=== PATIENT | male | born 1935 | race Caucasian/White ===

== ENCOUNTER → 2019-10-11 | Outpatient (CLI) | payer MEDICARE, BC ==
[2019-10-11 12:59] LABS: Appearance,Urine Clear (Clear); Bilirubin,Urine Negative (Negative); Blood,Urine Negative (Negative); Color,Urine Yellow; Glucose,Urine (UA) Negative (Negative); Ketones,Urine Negative (Negative); Leukocyte Esterase,Urine Negative (Negative); Nitrite,Urine Negative (Negative); Protein,Urine Negative (Negative); Specific Gravity,Urine 1.021 (1.001-1.035); Urobilinogen,Urine <2.0 mg/dL (<2.0)
[2019-10-11 13:10] LABS: HCT 32.4 % (39.0-53.0); HGB 10.5 gm/dL (13.0-17.5); MCH 31.7 pg (25.0-35.0); MCHC 32.4 g/dL (31.0-37.0); MCV 97.8 fL (80.0-100.0); Mean Platelet Volume 6.7; Platelet Count 280 k/uL (150-450); RBC 3.32 m/uL (4.30-5.90); RDW 14.8 % (11.5-15.5); WBC 4.8 k/uL (3.8-10.6)
[2019-10-11 13:29] LABS: INR 0.9 (<1.2); Partial Thromboplastin Time 23.7 sec (22.0-30.0); Prothrombin Time 9.6 sec (9.0-12.0)
[2019-10-11 13:38] LABS: Calcium 9.1 mg/dL (8.4-10.2); Potassium 4.7 mmol/L (3.5-5.1); Total Bilirubin 0.3 mg/dL (0.2-1.3); Total Protein 6.4 g/dL (6.3-8.2)
== END | disposition home or self-care (01) ==
LOC: LABPAT 11:44
PROVIDERS: ATTEND Orthopaedic Surgery
DX: Z01.818 Encounter for other preprocedural examination (principal); Z01.812 Encounter for preprocedural laboratory examination
CPT/HCPCS: 36415; 80053; 81003; 85027; 85610; 85730; 86850; 86900; 86901; 87070

== ENCOUNTER 2019-10-19 09:29 | Day surgery (SDC) | payer MEDICARE, BC ==
[2019-10-15 09:59] VITALS: BMI 26.7
[~2019-10-19 09:29] MED LIST: ACETAMINOPHEN TAB 500 MG TAB PO ONE; DEXAMETHASONE SOD PHOSPHATE 10 MG/ML 1 ML VIAL IV ONE; GABAPENTIN 300 MG CAP PO ONE; HYDROmorphone 0.5 MG/0.5 ML SYRINGE IVP PRN; MELOXICAM 7.5 MG TAB PO ONE; MIDAZOLAM 2 MG/2 ML VIAL IV PRN; ONDANSETRON 4 MG/2 ML VIAL IVP ONE; ROPIVACAINE 246.25 MG, EPINEPHrine 0.5 MG, KETOROLAC 30 MG, cloNIDine HCL/PF 80 MCG, WA... MISCELLANE ONE; TRANEXAMIC ACID 1,000 MG in SODIUM CHLORIDE 0.9% 100 ML IVPB ONE
[2019-10-19] MEDS ORDERED: ONDANSETRON 4 MG/2 ML VIAL ONE (10:22)
[2019-10-19] MEDS ORDERED: ACETAMINOPHEN TAB 500 MG TAB ONE (10:22)
[2019-10-19] MEDS: LACTATED RINGERS 1,000 ML IV SCH (10:37)
[2019-10-19] MEDS ORDERED: LIDOCAINE 1% (10MG/ML) FOR IV START INTRADERMA ONE (10:38)
[2019-10-19] MEDS ORDERED: TRANEXAMIC ACID 1,000 MG/10 ML VIAL ONE (11:15)
[2019-10-19] MEDS ORDERED: MIDAZOLAM 2 MG/2 ML VIAL ONE (11:15)
[2019-10-19] MEDS ORDERED: fentaNYL (PF) 50 MCG/ML 2 ML AMP ONE (11:15)
[2019-10-19] MEDS ORDERED: SODIUM CHLORIDE 0.9% 100 ML BAG ONE (11:15)
[2019-10-19] MEDS: TRANEXAMIC ACID 1,000 MG in SODIUM CHLORIDE 0.9% 100 ML IVPB ONE ×2 (11:20→15:46)
--- NOTE | 2019-10-19 12:54 | P.OP ---
Date of Procedure: 10/19/19 Preoperative Diagnosis: Severe osteoarthritis left hip Postoperative Diagnosis: Severe osteoarthritis left hip Procedure(s) Performed: Left total hip arthroplasty with a direct anterior approach Implants: [employer]cdonnell [employer] nephew Polarstem size 5 standard [employer]nell [employer]hew R3, 3 hole acetabular shell, 52 mm [employer]hew reflection 6.5 mm cancellus screw, 20 mm 2 [employer] R3, XLPE 20 acetabular liner [employer]hew Oxinium femoral head 36 m, +4 All components were press-fit. The articulation is Oxinium on polyethylene. Anesthesia: spinal Surgeon: Norm Domínguez Digital Art Director #1: Izabela Brasher Estimated Blood Loss (ml): 100 Pathology: other (Femoral head) Condition: stable Disposition: PACU Indications for Procedure: After failure of conservative treatment we discussed the surgical and nonsurgical treatment options at length. Patient wishes to proceed with a total hip arthroplasty with a direct anterior approach. Complications specific to this procedure were discussed at length, including but not limited to infection, leg length discrepancy, dislocation, and nerve injury. Covid-19 was also discussed at length with the patient, and they are aware of the current policies and procedures. The patient was given the option of delaying surgery, but they elect to proceed knowing these risks. Patient is aware of all these complications and informed consent was obtained Operative Findings: The operative findings are consistent with severe osteoarthritis of the left hip Description of Procedure: Patient was seen and evaluated in the preoperative area, consent was reviewed, and the surgical site was marked with a skin marker. Patient was then brought to the operating room and given prophylactic antibiotics intravenously. 1 g of Tranexamic acid was also given. A spinal anesthetic was administered by the anesthesia department. The patient was then placed on the Hickman table with the bony prominences well-padded. The hip area was then prepped and draped in usual sterile fashion. A universal timeout was then performed, which confirmed the patient's name, surgical site, ALLERGIES, and procedure being performed. Next the incision site was located at 1 cm distal and 1 cm lateral to the anterior superior iliac spine. The skin and subcutaneous tissues were sharply incised. Incision was carefully dissected down to the fascia overlying the tensor fascia minerva muscle. This fascia was then incised in line with the incision. Next, using blunt finger dissection, the tensor fascia minerva muscle was dissected off its investing fascia. The muscle was then carefully retracted laterally with a cobra retractor over the lateral neck of the femur. Next, the circumflex vessels were identified and cauterized using the AquaMantis device. The anterior hip capsule was then exposed. The capsule was then opened and an inverted T fashion. Cobra retractors were then placed intracapsularly. The proximal femur was then visualized. The femoral neck was then osteotomized appropriate level above the lesser trochanter. Small amount of traction was placed with the Hickman table. A small wedge of bone was then removed from the remaining femoral head. Next, using a corkscrew femoral head was easily removed from the acetabulum. On gross visual inspection, the femoral head had complete loss of articular cartilage in multiple periarticular osteophytes. Attention was then turned to the acetabulum. the acetabulum was exposed and any remaining labrum was excised. Sequential reaming of the acetabulum was performed using fluoroscopic guidance. When the appropriate size was reached, a trial was then placed. The position and fit of the trial was checked with fluoroscopy. The trial was then removed. Then, using fluoroscopic guidance, the final implant was impacted at 20 of anteversion and 40 of abduction, and fully seated in the acetabulum. 2 screws were then placed in the acetabulum. Again fluoroscopy was used to check pos ition of the screws. Next, the liner was then impacted, with a 20 elevated liner located in the anterior superior quadrant. Component locking was confirmed. Attention was then directed to the femur. With the aid of the Hickman table, the femur was externally rotated to approximately 130, extended, and abducted under the opposite leg. A side hook was then placed under the proximal femur, and the side hook elevator was used to elevate the proximal femur. Retractors were then placed. A capsular release was performed, as well as a release of the conjoined tendon, which afforded excellent visualization of the proximal femur. Next, a box osteotome was used to lateralize the proximal femur. A hand i cutter was then used to locate the femoral canal. Sequential broaching was then performed with appropriate size which afforded excellent fixation in the proximal femur. A trial was then placed with appropriate head and neck, and the hip was gently reduced with the aid of the Hickman table. Fluoroscopy was then used to check position of the components, as well as to ensure equal leg lengths. The hip was then gently dislocated and the trials were then removed. Final implants were then impacted and the hip was again reduced. Final fluoroscopic x-rays confirmed that the components were in anatomic position, as well as equal leg lengths. The hip was also taken through range of motion, and found to be stable. The hip was then copiously irrigated with antibiotic solution with pulsatile lavage. The hip was then irrigated with Irrisept solution. The soft tissues were then injected with a ropivacaine solution, which consisted of 246.25 mg of ropivacaine, 0.5 mg of epinephrine, 30 mg of Toradol, 80 g of clonidine, and 48.45 mL of sterile water, for a total of 100 mL of fluid injected. A second dose of 1 g of Tranexamic acid was also given. the fascia was then closed with 2-0 strata fix suture. The subcutaneous tissue was closed with 3-0 Vicryl. The subcuticular tissue was closed with 3-0 strata fix suture. The skin was then closed with Dermabond glue and a sterile silver dressing. The patient was then transferred to the recovery room in stable condition. The assistant women's soccer coach AL Benson was required due to the complexity of surgery, and the need for skilled salon shampoo assistant for positioning, draping, exposure, retraction, and closure of the wound.
[2019-10-19] MEDS ORDERED: LACTATED RINGERS 1,000 ML IV ONE (12:55)
[2019-10-19] MEDS ORDERED: NALOXONE 0.4 MG/ML 1 ML VIAL IV PRN (12:59)
[2019-10-19] MEDS ORDERED: MAGNESIUM HYDROXIDE 2,400 MG/10 ML CUP PO PRN (12:59)
[2019-10-19] MEDS ORDERED: HYDROcodone/APAP 5-325MG 1 EACH TAB PO PRN ×2 (12:59)
[2019-10-19] MEDS ORDERED: HYDROmorphone 0.5 MG/0.5 ML SYRINGE IVP PRN ×3 (12:59)
[2019-10-19] MEDS ORDERED: ONDANSETRON 4 MG/2 ML VIAL IVP PRN (12:59)
--- NOTE | 2019-10-19 14:12 | XR ---
EXAMINATION TYPE: XR Hip Limited LT DATE OF EXAM: 10/19/2019 COMPARISON: None HISTORY: Post hip surgery TECHNIQUE: Left hip AP view FINDINGS: There is a femoral prosthesis with acetabular component. No acute fractures are evident. Po stsurgical soft tissue changes are present. IMPRESSION: 1. No acute fracture post hip replacement
--- NOTE | 2019-10-19 15:13 | XR ---
Limited left hip HISTORY: Anterior hip replacement 2 intraoperative C-arm images document the procedure
--- NOTE | 2019-10-19 15:13 | FL ---
Fluoroscopy HISTORY: Anterior hip replacement 24 seconds fluoroscopy time supplied to the referring clinician. 2 intraoperative C-arm images docum ent the procedure. See dictated report from orthopedic surgery.
[2019-10-19] MEDS ORDERED: SENNOSIDES-DOCUSATE SODIUM 1 EACH TAB PO SCH (21:00)
[2019-10-19] MEDS: ASPIRIN 325 MG TAB PO SCH (21:48)
--- NOTE | 2019-10-19 22:18 | P.CONS ---
History of Present Illness - History of Present Illness this is a pleasant 84 yo M with past medical history of hypertension and oste oarthritis, who presents for elective left hip arthroplasty by orthopedic team for his sever osteoarthritis team. today is post op day #0, pt is lying in bed not in distress, pain is controlled and family at bed side pt denies chest pain , no dyspnea , no dysuria or urinary complaint, he did not have bowel movement yet vitals are stable Review of Systems CONSTITUTIONAL: No fever, no malaise, no fatigue. HEENT: No recent visual problems or hearing problems. Denied any sore throat. CARDIOVASCULAR: No orthopnea, PND, no palpitations, no syncope. PULMONARY: No shortness of breath, no cough, no hemoptysis. GASTROINTESTINAL: No diarrhea, no nausea, no vomiting, no abdominal pain. Normoactive bowel sounds. NEUROLOGICAL: No headaches, no weakness, no numbness. HEMATOLOGICAL: Denies any bleeding or petechiae. GENITOURINARY: Denies any burning micturition, frequency, or urgency. MUSCULOSKELETAL/RHEUMATOLOGICAL: Denies any joint pain, swelling, or any muscle pain. ENDOCRINE: Denies any polyuria or polydipsia. Past Medical History Past Medical History: Cancer, Hypertension, Osteoarthritis (OA) Additional Past Medical History / Comment(s): skin CA History of Any Multi-Drug Resistant Organisms: None Reported Past Surgical History: Joint Replacement Additional Past Surgical History / Comment(s): rt hip replaced, skin CA removed Past Anesthesia/Blood Transfusion Reactions: Postoperative Nausea & Vomiting (PONV) Additional Past Anesthesia/Blood Transfusion Reaction / Comm: no hx blood transfusion Past Psychological History: No Psychological Hx Reported Smoking Status: Former smoker Past Alcohol Use History: Occasional Additional Past Alcohol Use History / Comment(s): quit smoking 1965 Past Drug Use History: None Reported - Past Family History Mother Family Medical History: No Reported History Medications and Allergies Home Medications Medication Instructions Recorded Confirmed Type Lisinopril 20 mg PO QAM 10/14/19 10/14/19 History Ascorbic Acid [Vitamin C] 500 mg PO DAILY 10/18/19 10/18/19 History Beet Powder Supplement 1 dose PO DAILY 10/18/19 History Carrot Powder Supplement 1 dose PO DAILY 10/18/19 History [place] Supplement 1 dose PO DAILY 10/18/19 History Turmeric Root Extract [Turmeric] 500 mg PO DAILY 10/18/19 10/18/19 History Allergies Allergy/AdvReac Type Severity Reaction Status Date / Time No Known Allergies Allergy Verified 10/19/19 09:47 Physical Exam Vitals: Vital Signs Temp Pulse Resp BP Pulse Ox 10/19/19 16:20 62 168/80 96 10/19/19 16:00 66 16 10/19/19 15:50 65 168/85 94 L 10/19/19 15:35 72 168/83 95 10/19/19 15:20 65 155/82 95 10/19/19 15:05 64 164/81 92 L 10/19/19 14:50 64 154/72 96 10/19/19 14:35 67 152/80 95 10/19/19 14:20 97.6 F 68 17 146/77 94 L 10/19/19 13:45 66 16 157/74 96 10/19/19 13:30 62 16 143/69 96 10/19/19 13:15 71 16 132/65 94 L 10/19/19 13:00 97.2 F L 82 18 157/82 96 10/19/19 09:53 97.3 F L 72 16 174/83 98 Intake and Output 10/19/19 10/19/19 10/19/19 06:59 14:59 22:59 Intake Total 1200 Output Total 100 Balance 1100 Intake: IV 1200 Output: Estimated Blood Loss 100 Other: Weight 76.8 kg GENERAL: The patient is alert and oriented x3, not in any acute distress. Well developed, well nourished. HEENT: Pupils are round and equally reacting to light. EOMI. No scleral icterus. No conjunctival pallor. Normocephalic, atraumatic. No pharyngeal erythema. No thyromegaly. CARDIOVASCULAR: S1 and S2 present. No murmurs, rubs, or gallops. PULMONARY: Chest is clear to auscultation, no wheezing or crackles. ABDOMEN: Soft, nontender, nondistended, normoactive bowel sounds. No palpable organomegaly. MUSCULOSKELETAL: No joint swelling or deformity. -EXTREMITIES: No cyanosis, clubbing, or pedal edema. left hip surgical site looks closed and dry , dressing is in place NEUROLOGICAL: Gross neurological examination did not reveal any focal deficits. SKIN: No rashes. Assessment and Plan Assessment: sever primary osteoarthritis of the left hip status post left total hip arthroplasty hypertension Plan: this is a pleasant 84 yo M who presents for Left hip arthroplasty , resume his lisinopril in the morning and monitor his blood pressure pain management and DVT prophylaxis as per primary surgery team Labs and medication were reviewed.. Continue same treatment. Continue with symptomatic treatment. Resume home medication. Monitor lytes and vitals. DVT and GI prophylaxis. Further recommendations of the clinical course of the patient DVT prophylaxis: on aspirin BID per surgery team GI Prophylaxis: Pepcid we recommend pt follows up with his pcp in one week after discharge thank you for consulting up
[2019-10-20] MEDS: FAMOTIDINE 20 MG TAB PO SCH ×2 (03:46→08:08)
[2019-10-20] MEDS: SODIUM CHLORIDE 0.9% 1,000 ML IV SCH ×2 (03:46→08:03)
[2019-10-20 07:34] LABS: Basophils % (A) 0 %; Eosinophils # (A) 0.1 k/uL (0-0.7); Eosinophils % (A) 2 %; HCT 26.3 % (39.0-53.0); Lymphocytes # (A) 0.3 k/uL (1.0-4.8); Lymphocytes % (A) 7 %; MCHC 31.6 g/dL (31.0-37.0); Mean Platelet Volume 7.1; Monocytes # (A) 0.5 k/uL (0-1.0); Monocytes % (A) 9 %; Neutrophils # (A) 4.1 k/uL (1.3-7.7); Neutrophils % (A) 79 %; Platelet Count 226 k/uL (150-450); RBC 2.77 m/uL (4.30-5.90); RDW 15.1 % (11.5-15.5); WBC 5.2 k/uL (3.8-10.6)
[2019-10-20 07:38] LABS: HGB 8.3 gm/dL (13.0-17.5)
[2019-10-20] MEDS: LACTATED RINGERS 1,000 ML IV SCH (08:03)
[2019-10-20] MEDS: ASPIRIN 325 MG TAB PO SCH (08:08)
[2019-10-20] MEDS ORDERED: lisinopriL 20 MG TAB PO SCH (09:00)
--- NOTE | 2019-10-20 09:33 | P.DS ---
Providers Expected date of discharge: 10/20/19 Attending physician: Norm Domínguez Consults: 10/19/19 12:59 Consult Physician Routine Consulting Provider: Tristan Stoner Consult Reason/Comments: medical management Do you want consulting provider notified?: Yes Primary care physician: Doc Lake - Discharge Diagnosis(es) (1) Osteoarthritis of left hip Current Visit: Yes Status: Acute (2) Status post total hip replacement, left Current Visit: Yes Status: Acute Hospital Course: This is an 84-year-old male with known history of degenerative arthritis of the left hip. The patient presents for evaluation. After discussion and consideration patient elects to proceed with total hip arthroplasty. The patient is seen preoperatively by Dr. Domínguez and medically cleared for surgery by their primary care physician. Patient is admitted to [facility] on 10/19/2019 for total hip arthroplasty. The procedures performed without complication or sequelae. The patient is doing well postoperatively. Labs and vital signs are stable on day of discharge. On day of discharge patient's hip incision is healing well. There is minimal erythema. There is no drainage noted at this time. There is minimal soft tissue swelling to the hip and thigh. Patient has full foot and ankle motion without difficulty or pain. Calf is soft and nontender to palpation. Neurovascular status to the left lower extremity is intact. Patient is discharged home in good condition. Opioid start talking form is reviewed and signed at patient bedside. Please see med rec for accurate list of home medications. Plan - Discharge Summary Discharge Rx Participant: Yes New Discharge Prescriptions: New Aspirin 325 mg PO BID #60 tab No Action Lisinopril 20 mg PO QAM Turmeric Root Extract [Turmeric] 500 mg PO DAILY Ascorbic Acid [Vitamin C] 500 mg PO DAILY [place] Greens Supplement 1 dose PO DAILY Carrot Powder Supplement 1 dose PO DAILY Beet Powder Supplement 1 dose PO DAILY Discharge Medication List Lisinopril 20 mg PO QAM 10/14/19 [History] Ascorbic Acid [Vitamin C] 500 mg PO DAILY 10/18/19 [History] Beet Powder Supplement 1 dose PO DAILY 10/18/19 [History] Carrot Powder Supplement 1 dose PO DAILY 10/18/19 [History] [place] Greens Supplement 1 dose PO DAILY 10/18/19 [History] Turmeric Root Extract [Turmeric] 500 mg PO DAILY 10/18/19 [History] Aspirin 325 mg PO BID #60 tab 10/20/19 [Rx] Follow up Appointment(s)/Referral(s): Doc Lake MD [Primary Care Provider] - 1 Week Norm Domínguez DO [Doctor of Osteopathic Medicine] - 2 Weeks Activity/Diet/Wound Care/Special Instructions: Weightbearing as tolerated with walker. Leave dressing intact. Dressing may be removed by home care nurse or by patient in 10 days. May shower with dressing on. Recommend use of compression stockings daily until follow up to help prevent swelling and blood clots. May remove at night before sleeping. Please follow-up with [facility] in 2 weeks and call with any questions or concerns, . Discharge Disposition: HOME WITH HOME HEALTH SERVICES
[2019-10-20] MEDS ORDERED: FERROUS SULFATE 325 MG TAB PO SCH (11:30)
--- NOTE | 2019-10-20 12:17 | P.PN ---
Subjective this is a pleasant 84 yo M with past medical history of hypertension and osteoarthritis, who presents for elective left hip arthroplasty by orthopedic team for his sever osteoarthritis team. today is post op day #0, pt is lying in bed not in distress, pain is controlled and family at bed side pt denies chest pain , no dyspnea , no dysuria or urinary complaint, he did not have bowel movement yet vitals are stable 10/20/2019 Patient is seen at bedside, is fully awake and oriented, he denies chest pain or dyspnea. Abdominal pain. He is tolerating diet well, no nausea vomiting. He is passing gas but had no bowel movement. No fever. Vitals looks stable. Hemoglobin went down from 10.5 down to 8.3, which is expected from blood loss anemia during surgery. Patient is started on iron pills and he informed to follow up with his PCP in one week to recheck his hemoglobin and blood test and he agrees. [facility] Barbara Marcus on 10/27 that he intends to follow-up with [facility] - Vital Signs Vital signs: Vital Signs Temp 97.9 F 10/20/19 07:00 Pulse 78 10/20/19 07:00 Resp 16 10/20/19 07:00 BP 163/84 10/20/19 07:00 Pulse Ox 96 10/20/19 07:00 Intake & Output 10/19/19 10/20/19 10/20/19 18:59 06:59 18:59 Intake Total 1200 Output Total 100 Balance 1100 Weight 76.8 kg Intake: IV 1200 Output: Estimated Blood Loss 100 Other: # Voids 1 - Exam GENERAL: The patient is alert and oriented x3, not in any acute distress. Well developed, well nourished. HEENT: Pupils are round and equally reacting to light. EOMI. No scleral icterus. No conjunctival pallor. Normocephalic, atraumatic. No pharyngeal erythema. No thyromegaly. CARDIOVASCULAR: S1 and S2 present. No murmurs, rubs, or gallops. PULMONARY: Chest is clear to auscultation, no wheezing or crackles. ABDOMEN: Soft, nontender, nondistended, normoactive bowel sounds. No palpable organomegaly. MUSCULOSKELETAL: No joint swelling or deformity. -EXTREMITIES: No cyanosis, clubbing, or pedal edema. left hip surgical site looks closed and dry , dressing is in place NEUROLOGICAL: Gross neurological examination did not reveal any focal deficits. SKIN: No rashes. - Labs CBC & Chem 7: 10/20/19 06:59 Labs: Abnormal Lab Results - Last 24 Hours (Table) 10/20/19 Range/Units 06:59 RBC 2.77 L (4.30-5.90) m/uL Hgb 8.3 L D (13.0-17.5) gm/dL Hct 26.3 L (39.0-53.0) % Lymphocytes # 0.3 L (1.0-4.8) k/uL Assessment and Plan Assessment: sever primary osteoarthritis of the left hip status post left total hip arthroplasty acute blood loss anemia, expected from surgery hypertension Plan: this is a pleasant 84 yo M who presents for Left hip arthroplasty , resume his lisinopril in the morning and monitor his blood pressure pain management and DVT prophylaxis as per primary surgery team saw the patient on iron pills, follow-up with PCP in one week, patient has an appointment on 10/27 with JONATHAN Garner and he agrees to follow up with her Labs and medication were reviewed.. Continue same treatment. Continue with symptomatic treatment. Resume home medication. Monitor lytes and vitals. DVT and GI prophylaxis. Further recommendations of the clinical course of the patient DVT prophylaxis: on aspirin BID per surgery team GI Prophylaxis: Pepcid we recommend pt follows up with his pcp in one week after discharge thank you for consulting up
[2019-10-20 14:00] VITALS: BP 167/79; PULSE 80; RESP 20; TEMP 97.2
== END 2019-10-20 15:57 | disposition home health service (06) ==
LOC: OR 09:29 → 4SSUR 13:59 → OR 10-20 15:57
PROVIDERS: ATTEND Orthopaedic Surgery
DX: M16.12 Unilateral primary osteoarthritis, left hip (principal); I10 Essential (primary) hypertension; D62 Acute posthemorrhagic anemia; Z85.828 Personal history of other malignant neoplasm of skin; Z96.641 Presence of right artificial hip joint; Z87.891 Personal history of nicotine dependence; Z79.899 Other long term (current) drug therapy; Z85.46 Personal history of malignant neoplasm of prostate; Z92.3 Personal history of irradiation; Z88.0 Allergy status to penicillin; Z88.8 Allergy status to other drugs, medicaments and biological substances; Z82.49 Family history of ischemic heart disease and other diseases of the circulatory system
CPT/HCPCS: 97110; 97161; 97165; 86891; 86900; 86901; 85025; 86850; 88300; 73501 ×2; 27130; C1776; J2250; J0171; J1100; J0690 ×2; J2405; J3010; J1885; J2795; J0735